=== PATIENT | male | born 1955 | race Caucasian/White ===

== ENCOUNTER → 2017-03-19 | Outpatient (CLI) | payer BC, OTHER ==
--- NOTE | 2017-03-19 18:58 | Diagnostic Imaging Report ---
PROCEDURE: US Thyroid. TECHNIQUE: Multiple real-time grayscale images were obtained of the thyroid in various projections. INDICATION: History of parathyroid ablation. Thyromegaly. FINDINGS: The right thyroid lobe is 2.6 x 1 x 0.8 cm and the left lobe is 2.7 x 0.6 x 0.8 cm. Overall the thyroid gland is small in size and demonstrates minimal heterogeneity with no focal mass. IMPRESSION: Small slightly heterogenous thyroid gland. Dictated by: Dictated on workstation # [id number]
== END ==
LOC: RAD 09:51
PROVIDERS: ATTEND Nurse Practitioner Family
DX: E01.0 Iodine-deficiency related diffuse (endemic) goiter (principal)
CPT/HCPCS: 76536

== ENCOUNTER 2017-04-15 09:46 | Day surgery (SDC) | payer OTHER ==
[~2017-04-15] VITALS: Ht 172.7 cm; Wt 95.3 kg
[~2017-04-15 09:46] MED LIST: AMLO5TAB2 PO; CARB-88 PO; COLC0.6T53 PO; LEVO200T PO; LEVO75TA PO; LOSA100T28 PO; PHEN64.8 PO; SULF1TAB35 PO
[2017-04-15 09:50] VITALS: BP 145/79
[2017-04-15] MEDS ORDERED: ceFAZolin 2 GM/50 ML NS 50 ML ONE (10:12)
[2017-04-15] MEDS ORDERED: LACTATED RINGERS 1,000 ML IV PRN (10:48)
[2017-04-15] MEDS ORDERED: ceFAZolin 2 GM/NS 50 ML IV ONE (11:00)
[2017-04-15] MEDS ORDERED: CARV25TA PO (11:21)
[2017-04-15] MEDS ORDERED: proPOfol 200 MG/20 ML (DIPRIVAN) VIAL IV ONE (12:00)
[2017-04-15] MEDS ORDERED: MIDAZOLAM 2 MG/2 ML (VERSED) VIAL ONE (12:01)
[2017-04-15] MEDS ORDERED: BUP/EPI 0.5% 1:200,000 (MARCAINE) 10ML VIAL IJ ONE (12:15)
--- NOTE | 2017-04-15 13:08 | Progress Note-Pre Operative ---
Pre-Operative Progress Note H&P Reviewed The H&P was reviewed, patient examined and no changes noted. Date Seen by Provider: Apr 08, 2017 Time Seen by Provider: 16:25 Date H&P Reviewed: Apr 15, 2017 Time H&P Reviewed: 13:07 Pre-Operative Diagnosis: 1. Sebaceous cyst-r flank. 2. Need for screening for colon cancer FOSTER LATHAM MD Apr 15, 2017 1:08 pm
[2017-04-15] MEDS ORDERED: SEVOFLURANE (ULTANE) 15 ML INHAL SOLN ONE (14:02)
--- NOTE | 2017-04-15 14:19 | Operative Report ---
Operative Report Date of Procedure/Surgery Apr 15, 2017 Surgeon (s) FOSTER LATHAM MD Care Attendant (s): Rohini Wilson ( Med Student) Post-Operative Diagnosis Infected sebaceous cyst right flank 1 mm polyp at the mid transverse colon Procedure Performed Excision of infected sebaceous cystright flank Colonoscopy to cecum Hot biopsy polypectomy Description of Procedure Anesthesia Type: General Estimated blood loss (mL): Minimal Specimen(s) collected/removed infected sebaceous cyst from the right flank. Polyp from the mid transverse colon Description of the Procedure Indication for the procedures: this gentleman was initially scheduled to undergo screening colonoscopy. The week before, he presented with a 3 cm infected sebaceous cyst over the right flank. He was offered concomitant excision of the time of colonoscopy. Informed consent was obtained after reviewing the operative details and complications of postoperative hematoma, wound infection, recurrence etc. Description of the procedures: 1. Excision of infected sebaceous cyst-right flank: He was placed supine on the operative table and general anesthesia induced using a laryngeal mask airway.2 g of Ancef were administered intravenously as prophylaxis against wound infection. Sequential compression devices were placed around his legs, to minimize the risk of venous thrombosis. Right flank was prepared and draped in the usual sterile manner. Pre-emptive analgesia was established using 0.5 percent Marcaine with epinephrine. An elliptical incision about 5 cm long was made and the cyst excised. Hemostasis was achieved using cautery and the area irrigated with saline. The incision was closed using interrupted 40 and 3-0 nylon sutures. A nonadherent dressing was then applied. 2. Colonoscopy/polypectomy: Digital rectal examination was unremarkable. The colonoscope was then introduced into the rectum and advanced all the way up to the cecum. The scope was then withdrawn slowly and the mucosa examined in a systematic fashion. Findings: 1 mm polyp in the mid transverse colon, possibly hyperplastic in nature, that was excised with hot biopsy forceps. He tolerated the procedures well, was extubated in the operating room and taken to the recovery room in a stable condition. Impression: Screening colonoscopy. One millimeter polyp excised from the transverse colon. Recommend surveillance colonoscopy in 5 years. Findings of the Procedure see op report Allergies and Home Medications Allergies Coded Allergies: No Known Drug Allergies (Unverified , 04/08/17) Home Medications Amlodipine Besylate 5 Mg Tablet, 5 MG PO DAILY, (Reported) Carbamazepine 200 Mg Tab.er.12h, 200 MG PO DAILY, (Reported) Carvedilol 25 Mg Tablet, 25 MG PO BID, (Reported) Colchicine 0.6 Mg Tablet, 0.6 MG PO DAILY, (Reported) Levothyroxine Sodium 200 Mcg Tablet, 200 MCG PO DAILY, (Reported) Levothyroxine Sodium 75 Mcg Tablet, 75 MCG PO DAILY, (Reported) Losartan Potassium 100 Mg Tablet, 100 MG PO DAILY, (Reported) Phenobarbital 64.8 Mg Tablet, 194.4 MG PO DAILY, (Reported) Sulfamethoxazole/Trimethoprim 1 Each Tablet, 1 EACH PO BID, (Reported) Copy Copies To 1: KATY ISU XAVIER M MD Apr 15, 2017 2:19 pm
[2017-04-15] MEDS ORDERED: HYDR-3812 PO (14:20)
--- NOTE | 2017-04-15 14:21 | Discharge Inst-Simple/Standard ---
Discharge Inst-Standard Discharge Medications New, Converted or Re-Newed RX: RX on Chart Patient Instructions/Follow Up Plan of Care/Instructions/FU: Dressing to be replaced with a Band-Aid every 48 hours. Follow-up with my nurse in 2 weeks for suture removal. Repeat colonoscopy in 5 years Activity as Tolerated: Yes Discharge Diet: No Restrictions FOSTER LATHAM MD Apr 15, 2017 2:21 pm
[2017-04-15] MEDS ORDERED: morphine INJ 10 MG/ML 1ML (SYR OR VIAL) IVP PRN (14:30)
[2017-04-15] MEDS ORDERED: ONDANSETRON 4 MG/2 ML (SDV) Z0FRAN IVP PRN (14:30)
[2017-04-15] MEDS ORDERED: MEPERIDINE (DEMEROL) INJ 50 MG/ML IVP PRN (14:30)
[2017-04-15 15:00] VITALS: BP 148/73
[2017-04-15 15:01] VITALS: BP 148/73
[2017-04-15 15:30] VITALS: BP 141/78
[2017-04-15 15:31] VITALS: BP 141/78
== END 2017-04-15 16:00 | disposition home or self-care (01) ==
LOC: ENDO 09:46
PROVIDERS: ATTEND Surgery
DX: Z12.11 Encounter for screening for malignant neoplasm of colon (principal); L72.3 Sebaceous cyst; K63.5 Polyp of colon; I10 Essential (primary) hypertension; G47.33 Obstructive sleep apnea (adult) (pediatric); E03.9 Hypothyroidism, unspecified; G40.909 Epilepsy, unspecified, not intractable, without status epilepticus; Z79.899 Other long term (current) drug therapy
CPT/HCPCS: 87081

== ENCOUNTER 2017-05-01 06:06 | Emergency (ER) | payer OTHER ==
[~2017-05-01] VITALS: Ht 172.7 cm; Wt 95.3 kg
[~2017-05-01 06:06] MED LIST changes: +CARV25TA PO; +HYDR-3812 PO
--- OUTSIDE RECORDS SUMMARY | 2017-05-01 06:13 | XMS REPORT | Clinical Summary ---
Author Author [facility] Organization [facility] Address Unknown Phone Unavailable Care Team Providers Care Financial Director Name Role Phone PCP Unavailable Source Comments Some departments are not documenting in the electronic medical record. If you do not see the information that you expected, contact Release of Information in the Health Information Management department at [phone] for further assistance in locating additional records.[facility] Allergies Active Allergy Reactions Severity Noted Date Comments Lidocaine PALPITATIONS 05/14/2014 Received at the dentist's office - stated that his "heart started beating faster" and he had "difficulty swallowing" which was relieved by suctioning, but no swelling or difficulty breathing. Current Medications Prescription Sig. Disp. Refills Start End Date Status Date tadalafil(+) (CIALIS) 5 Take 5 mg by mouth daily. Active mg tablet carBAMazepine XR Take 100 mg by mouth Active (TEGRETOL XR) 100 mg daily. tablet olmesartan-hydrochlorothi Take 1 Tab by mouth Active azide (BENICAR HCT) 40-25 daily. mg tablet carvedilol (COREG) 25 mg Take 25 mg by mouth twice Active tablet daily with meals. PHENobarbital 64.8 mg Take 3 tablets (194.4mg) Active tablet by mouth every day at bedtime atorvastatin (LIPITOR) 40 Take 40 mg by mouth Active mg tablet daily. colchicine (COLCRYS) 0.6 Take 0.6 mg by mouth Active mg tablet daily. amLODIPine (NORVASC) 5 mg Take 5 mg by mouth daily. Active tablet levothyroxine (SYNTHROID) Take 250mcg by mouth Active 50 mcg tablet daily. Take with 200mcg tablet for a total daily dose of 250mcg levothyroxine (SYNTHROID) Take 250mcg by mouth Active 200 mcg tablet daily. Take with 50mcg tablet for a total daily dose of 250mcg. Diphenhydramine-Acetamino Take 3 Tabs by mouth at Active phen (TYLENOL PM EXTRA bedtime daily. STRENGTH) 25-500 mg tab tablet ranitidine(+) (ZANTAC) Take 150 mg by mouth at Active 150 mg tablet bedtime daily. senna/docusate Take 1 Tab by mouth twice 60 Tab 0 06/11/19 Active (SENOKOT-S) 8.6/50 mg daily. 15 tablet morphine IR (MSIR) 15 mg Take 1 Tab by mouth every 40 Tab 0 06/11/19 Active tablet 6 hours as needed for 15 Pain Earliest Fill Date: 06/11/14 diazepam (VALIUM) 2 mg Take 1 Tab by mouth every 30 Tab 0 06/22/19 Active tablet 6 hours as needed for 15 Anxiety. lidocaine (LIDODERM) 5 % Apply topically to 30 Patch 1 06/22/19 Active topical patch abdomen at 8;00 am and 15 remove at 8:00 pm daily prn pain Active Problems Problem Noted Date Adrenal adenoma 06/09/2014 Adrenal mass (HCC) 05/11/2014 Immunizations Name Dates Previously Given Next Due Flu Vaccine Trivalent=>3 05/14/2014 Yo (Preservative Free) Family History Medical History Relation Name Comments Diabetes Father Hypertension Father Migraines Maternal Grandmother Cancer-Colon Maternal Uncle Cancer Mother Cancer-Breast Paternal Aunt Cancer Paternal Grandfather Cancer Paternal Grandmother Cancer-Prostate Paternal Uncle Hypertension Sister Migraines Sister Relation Name Status Comments Father Alive Maternal Grandmother Maternal Uncle Mother Paternal Aunt Alive Paternal Grandfather Paternal Grandmother Paternal Uncle Alive Sister Alive Social History Tobacco Use Types Packs/Day Years Used Date Never Smoker Alcohol Use Drinks/Week oz/Week Comments No Sex Assigned at Date Recorded Not on file Last Filed Vital Signs Vital Sign Reading Time Taken Blood Pressure 149/92 07/06/2014 12:59 PM [facility] Pulse 96 07/06/2014 12:59 PM [facility] Temperature 37.2 C (99 F) 07/06/2014 12:59 PM [facility] Respiratory Rate 18 07/06/2014 12:59 PM [facility] Oxygen Saturation 96% 07/06/2014 12:59 PM [facility] Inhaled Oxygen - - Concentration Weight 112.9 kg (248 lb 12.8 oz) 07/06/2014 12:59 PM [facility] Height 172.7 cm (5' 7.99") 07/06/2014 12:59 PM [facility] Body Mass Index 37.84 07/06/2014 12:59 PM [facility] Plan of Treatment Health Maintenance Due Date Last Done Comments HEPATITIS C SCREENING 1955 PHYSICAL (COMPREHENSIVE) 1962 EXAM PERTUSSIS VACCINE 1966 TETANUS VACCINE 02/24/1972 COLORECTAL CANCER 2005 SCREENING SHINGLES VACCINE 2015 INFLUENZA VACCINE 01/01/2017 05/14/2014, 05/14/2014 Results Not on filefrom Last 3 Months
[2017-05-01] MEDS ORDERED: METH4TAB10 (06:21)
[2017-05-01] MEDS ORDERED: AMOX500C2 (06:21)
--- NOTE | 2017-05-01 06:37 | ED Integumentary General ---
General Chief Complaint: Skin/Wound Problems Stated Complaint: RIPPED STITCHES RT SIDE Nursing Triage Note: OPENED INCISION Source: patient, old records Exam Limitations: no limitations History of Present Illness Time seen by provider: 06:23 Initial Comments Patient presents to ER by private conveyance with chief complaint that his surgical wound opened up this morning while he was in bed and had a lot of blood at the site. Patient had a sebaceous cyst removed [address] Latham, General Surgery. He had the stitches pulled [address] Latham clinic. Wound was doing well he is having no fevers, chills, nausea, vomiting, shortness of breath, chest pain. He does not smoke nor does he have diabetes. 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 2 days ago he picked up a prescription for antibiotics and steroids for an abscess of his tooth. Allergies and Home Medications Allergies Coded Allergies: No Known Drug Allergies (Unverified , 04/08/17) Home Medications Amlodipine Besylate 5 Mg Tablet, 5 MG PO DAILY, (Reported) Amoxicillin 500 Mg Capsule, (Reported) Carbamazepine 200 Mg Tab.er.12h, 200 MG PO DAILY, (Reported) Carvedilol 25 Mg Tablet, 25 MG PO BID, (Reported) Colchicine 0.6 Mg Tablet, 0.6 MG PO DAILY, (Reported) Hydrocodone/Acetaminophen 1 Each Tablet, 1-2 TAB PO 4-6HR PRN for PAIN, #30 Ref 0 Prescribed by: FOSTER LATHAM on 04/15/17 1420 Levothyroxine Sodium 200 Mcg Tablet, 200 MCG PO DAILY, (Reported) Levothyroxine Sodium 75 Mcg Tablet, 75 MCG PO DAILY, (Reported) Losartan Potassium 100 Mg Tablet, 100 MG PO DAILY, (Reported) Methylprednisolone 4 Mg Tab.ds.pk, (Reported) Phenobarbital 64.8 Mg Tablet, 194.4 MG PO DAILY, (Reported) Sulfamethoxazole/Trimethoprim 1 Each Tablet, 1 EACH PO BID, (Reported) Constitutional: No chills, No diaphoresis, No fever Respiratory: No cough, No short of breath Cardiovascular: No chest pain, No palpitations Gastrointestinal: No abdominal pain, No nausea Genitourinary: No discharge, No dysuria Musculoskeletal: No back pain, No joint pain Skin: see HPI Past Swvcpya-Whwuhc-Aokgdy Hx Patient Social History Alcohol Use: Denies Use Recreational Drug Use: No Smoking Status: Never a Smoker 2nd Hand Smoke Exposure: No Recent Foreign Travel: No Contact w/Someone Who Travel: No Recent Infectious Disease Expo: No Recent Hopitalizations: No Immunizations Up To Date Tetanus Booster (TDap): Unknown PED Vaccines UTD: No Date of Influenza Vaccine: Feb 13, 2016 Seasonal Allergies Seasonal Allergies: Yes Surgeries History of Surgeries: Yes (ADRENAL GLAND REMOVED, CYSTS REMOVED NECK) Surgeries: Tonsillectomy Respiratory History of Respiratory Disorde: Yes Respiratory Disorders: Sleep Apnea Currently Using CPAP: No (UNABLE TO USE) Cardiovascular History of Cardiac Disorders: Yes Cardiac Disorders: Hypertension Neurological History of Neurological Disord: Yes (HASNT HAD SEIZURE IN 20YRS) Neurological Disorders: Seizure Disorder Reproductive System Hx Reproductive Disorders: No Sexually Transmitted Disease: No HIV/AIDS: No Genitourinary History of Genitourinary Disor: No Gastrointestinal History of Gastrointestinal Di: No Musculoskeletal History of Musculoskeletal Dis: No Endocrine History of Endocrine Disorders: Yes Endocrine Disorders: Hypothyroidsim HEENT History of HEENT Disorders: No Loss of Vision: Bilateral Hearing Impairment: Denies Cancer History of Cancer: No Psychosocial History of Psychiatric Problem: No Integumentary History of Skin or Integumenta: No Blood Transfusions History of Blood Disorders: No Adverse Reaction to a Blood Tr: No (N/A) Physical Exam Vital Signs Vital Sign - Last 12Hours 05/01/17 06:10 Temp 98.1 Pulse 63 Resp 18 B/P (MAP) 143/87 Pulse Ox 94 O2 Delivery Room Air Capillary Refill : Less Than 3 Seconds General Appearance: WD/WN, no apparent distress HEENT: PERRL/EOMI, pharynx normal Cardiovascular: normal peripheral pulses, regular rate, rhythm Respiratory: lungs clear, normal breath sounds Gastrointestinal: non tender, soft Neurologic/Psychiatric: alert, oriented x 3 Skin: normal color, warm/dry, other (2-1/2 cm long reopening of a previously approximated surgical incision in the right chest midaxillary line at about the 10th rib. Small cavity hemostatic approximately the size of a quarter.) Progress/Results/Core Measures Results/Orders Vital Signs/I&O Vital Sign - Last 12Hours 05/01/17 06:10 Temp 98.1 Pulse 63 Resp 18 B/P (MAP) 143/87 Pulse Ox 94 O2 Delivery Room Air Blood Pressure Mean: 105 Consults Consults : Consulting Physician: BETTY ARNOLD MD Consults Notes He recommends just packing the wound place and a dressing over and have him follow-up in about one week with Dr. Latham. No antibiotics necessary at this time. Clean with soap and water. Change daily and as needed for soiling. Departure Impression Impression: Primary Impression: Wound dehiscence Disposition: HOME, SELF-CARE Condition: Stable Departure-Patient Inst. Decision time for Depature: 06:38 Referrals: KATY SIU DO (PCP) Primary Care Physician KATHRYN SIU DNP (Family) Primary Care Physician Patient Instructions: Wound Care (DC) Add. Discharge Instructions: Packed the wound with the iodoform daily and as needed for soiling of the dressing. Clean by allowing soap water to just run over it while in the shower. Apply a clean dry gauze dressing over top of the wound. Make plans to follow-up with Dr. Latham next week. If you begin to have extreme redness, increasing pain, nausea, fevers you should get in with your doctor or return to the ER. Discontinue the steroids but you may continue the antibiotics for your tooth. All discharge instructions reviewed with patient and/or family. Voiced understanding. Copy Copies To 1: FOSTER LATHAM MD Copies To 2: KATY SIU TITUS J May 01, 2017 06:37
[2017-05-01 06:44] VITALS: BP 143/87
== END 2017-05-01 06:49 | disposition home or self-care (01) ==
LOC: EDUNIT# 06:06 → ER 06:09
DX: T81.31XA Disruption of external operation (surgical) wound, not elsewhere classified, initial encounter (principal); G47.30 Sleep apnea, unspecified; I10 Essential (primary) hypertension; G40.909 Epilepsy, unspecified, not intractable, without status epilepticus; E03.9 Hypothyroidism, unspecified; Z90.89 Acquired absence of other organs

== ENCOUNTER → 2017-05-16 | Outpatient (CLI) | payer OTHER ==
[~2017-05-16] MED LIST changes: +AMOX500C2; +METH4TAB10
== END ==
LOC: WOUNDCARE 10:38
PROVIDERS: ATTEND Nurse Practitioner
DX: L97.212 Non-pressure chronic ulcer of right calf with fat layer exposed (principal); I87.331 Chronic venous hypertension (idiopathic) with ulcer and inflammation of right lower extremity; E11.622 Type 2 diabetes mellitus with other skin ulcer; E66.01 Morbid (severe) obesity due to excess calories; I70.232 Atherosclerosis of native arteries of right leg with ulceration of calf
CPT/HCPCS: 11042; 87070; 87075; 87205

== ENCOUNTER → 2017-05-24 | Outpatient (CLI) | payer OTHER | LOC: WOUNDCARE 08:13 | PROVIDERS: ATTEND Surgery | DX: T81.31XA Disruption of external operation (surgical) wound, not elsewhere classified, initial encounter (principal); L98.492 Non-pressure chronic ulcer of skin of other sites with fat layer exposed | CPT/HCPCS: 11042 ==

== ENCOUNTER → 2017-06-07 | Outpatient (CLI) | payer OTHER ==
[~2017-06-07] MED LIST changes: +ACHD5005 PO; -HYDR-3812 PO
== END ==
LOC: WOUNDCARE 08:08
PROVIDERS: ATTEND Surgery
DX: T81.31XA Disruption of external operation (surgical) wound, not elsewhere classified, initial encounter (principal); L98.492 Non-pressure chronic ulcer of skin of other sites with fat layer exposed
CPT/HCPCS: 99212

== ENCOUNTER 2020-10-31 20:42 | Inpatient (IN) | payer OTHER, MEDICARE ==
[~2020-10-31] VITALS: Ht 173 cm; Wt 95.0 kg
[~2020-10-31 20:42] MED LIST changes: +AMLO-250 PO; -AMLO5TAB2 PO; -LOSA100T28 PO; +LOSA100T57 PO
[2020-10-31] MEDS ORDERED: NS IV 1000 ML 1,000 ML IV SCH (21:00)
[2020-10-31 21:07] LABS: BASOPHILS % (AUTO) 0 % (0-10); EOSINOPHILS % (AUTO) 0 % (0-10); HEMATOCRIT 35 % (40-54); HEMOGLOBIN 12.1 g/dL (13.3-17.7); LYMPHOCYTES # (AUTO) 0.5 10^3/uL (1.0-4.0); LYMPHOCYTES % (AUTO) 8 % (12-44); MEAN CORPUSCULAR HEMOGLOBIN 31 pg (25-34); MEAN CORPUSCULAR HGB CONC 34 g/dL (32-36); MEAN CORPUSCULAR VOLUME 89 fL (80-99); MEAN PLATELET VOLUME 10.5 fL (9.0-12.2); MONOCYTES # (AUTO) 0.2 10^3/uL (0.0-1.0); MONOCYTES % (AUTO) 3 % (0-12); NEUTROPHILS % (AUTO) 89 % (42-75); PLATELET COUNT 222 10^3/uL (130-400); WHITE BLOOD COUNT 6.8 10^3/uL (4.3-11.0)
--- NOTE | 2020-10-31 21:11 | ED General ---
General Chief Complaint: Fever-Adult/Adol Stated Complaint: FEVER EVERY 2 HOURS Nursing Triage Note: MALAISE X1 WEEK, FEVER/DIARRHEA SINCE SATURDAY. Nursing Sepsis Screen: No Definite Risk Source of Information: Patient Exam Limitations: No Limitations History of Present Illness Date Seen by Provider: October 31, 2020 Time Seen by Provider: 21:09 Initial Comments To ER with general malaise for 1 week. He started with a fever and diarrhea 2 days ago. Fever up to 105 degrees, spikes every couple of hours. No nausea no vomiting no dysuria. No known tick bites. No rash. No sore throat no headache. No abdominal pain. No cough.Had Scooter and Scooter covid vaccine in September. Timing/Duration: 1-2 Days Severity: Moderate Associated Systoms: Fever/Chills Allergies and Home Medications Allergies Coded Allergies: No Known Drug Allergies (Unverified , 04/08/17) Home Medications Amlodipine Besylate 5 Mg Tablet, 5 MG PO DAILY, (Reported) Amoxicillin/Potassium Clav 1 Each Tab.er.12h, 2 EACH PO BID Prescribed by: BECKY ETIENNE on 10/31/202118 Azithromycin 250 Mg Tablet, 250 MG PO DAILY Prescribed by: BECKY ETIENNE on 10/31/202118 Carbamazepine 200 Mg Tab.er.12h, 200 MG PO DAILY, (Reported) Carvedilol 25 Mg Tablet, 25 MG PO BID, (Reported) Colchicine 0.6 Mg Tablet, 0.6 MG PO DAILY, (Reported) Hydrocodone Bit/Acetaminophen 1 Each Tablet, 1-2 TAB PO 4-6HR PRN for PAIN Prescribed by: FOSTER LATHAM on 04/15/17 1420 Levothyroxine Sodium 200 Mcg Tablet, 200 MCG PO DAILY, (Reported) Levothyroxine Sodium 75 Mcg Tablet, 75 MCG PO DAILY, (Reported) Losartan Potassium 100 Mg Tablet, 100 MG PO DAILY, (Reported) Phenobarbital 64.8 Mg Tablet, 194.4 MG PO DAILY, (Reported) Sulfamethoxazole/Trimethoprim 1 Each Tablet, 1 EACH PO BID, (Reported) Patient Home Medication List Home Medication List Reviewed: Yes Review of Systems Review of Systems Constitutional: see HPI, chills, fever EENTM: see HPI Respiratory: no symptoms reported Cardiovascular: no symptoms reported Genitourinary: no symptoms reported Musculoskeletal: no symptoms reported Skin: no symptoms reported Psychiatric/Neurological: No Symptoms Reported Hematologic/Lymphatic: No Symptoms Reported Past Kbfhtid-Caqxfg-Klzmgf Hx Patient Social History Alcohol Use: Denies Use Smoking Status: Never a Smoker 2nd Hand Smoke Exposure: No Recent Infectious Disease Expo: No Recent Hopitalizations: No Immunizations Up To Date Tetanus Booster (TDap): Unknown PED Vaccines UTD: No Date of Influenza Vaccine: Feb 13, 2016 Seasonal Allergies Seasonal Allergies: Yes Past Medical History Surgeries: Yes (ADRENAL GLAND REMOVED, CYSTS REMOVED NECK) Tonsillectomy Respiratory: Yes Sleep Apnea Currently Using CPAP: No (UNABLE TO USE) Cardiac: Yes Hypertension Neurological: Yes Seizure Disorder Reproductive Disorders: No Sexually Transmitted Disease: No HIV/AIDS: No Genitourinary: No Gastrointestinal: No Musculoskeletal: No Endocrine: Yes Hypothyroidsim HEENT: No Loss of Vision: Bilateral Hearing Impairment: Denies Cancer: No Psychosocial: No Integumentary: No Blood Disorders: No Adverse Reaction/Blood Tranf: No (N/A) Physical Exam Vital Signs Vital Signs - First Documented 10/31/20 20:47 Temp 38.4 Pulse 88 Resp 12 B/P (MAP) 138/65 (89) Pulse Ox 93 O2 Delivery Room Air Capillary Refill : Less Than 3 Seconds Height, Weight, BMI Height: 5'8.00" Weight: 210lbs. 0.0oz. 95.173626ov; 31.00 BMI Method:Stated General Appearance: No Apparent Distress, WD/WN, Other (Diaphoretic as he states his fever just broke) Eyes: Bilateral Eye Normal Inspection, Bilateral Eye PERRL, Bilateral Eye EOMI HEENT: PERRL/EOMI, TMs Normal Neck: Full Range of Motion, Normal Inspection; No Lymphadenopathy (L), No Lymphadenopathy (R) Respiratory: No Accessory Muscle Use, No Respiratory Distress, Crackles (right lung base crackles) Cardiovascular: Regular Rate, Rhythm, Normal Peripheral Pulses Gastrointestinal: Normal Bowel Sounds, Non Tender, Soft Extremity: Normal Capillary Refill, Normal Inspection Neurologic/Psychiatric: Alert, Oriented x3 Skin: Normal Color, Warm/Dry Focused Exam Lactate Level 10/31/20 21:00: Lactic Acid Level 2.40*H Lactic Acid Level Laboratory Tests Test 10/31/20 21:00 Lactic Acid Level 2.40 MMOL/L (0.50-2.00) *H Progress/Results/Core Measures Suspected Sepsis Recent Fever Within 48 Hours: No Infection Criteria Present: None New/Unexplained Altered Menta: No Sepsis Screen: No Definite Risk SIRS Temperature: Pulse: 88 Respiratory Rate: 12 Laboratory Tests 10/31/20 21:00: White Blood Count 6.8 Blood Pressure 138 /65 Mean: 89 10/31/20 21:00: Lactic Acid Level 2.40*H Laboratory Tests 10/31/20 21:00: Creatinine 1.17, Platelet Count 222, Total Bilirubin 0.3 Results/Orders Lab Results Laboratory Tests Test 10/31/20 21:00 Range/Units White Blood Count 6.8 4.3-11.0 10^3/uL Red Blood Count 3.97 L 4.30-5.52 10^6/uL Hemoglobin 12.1 L 13.3-17.7 g/dL Hematocrit 35 L 40-54 % Mean Corpuscular Volume 89 80-99 fL Mean Corpuscular Hemoglobin 31 25-34 pg Mean Corpuscular Hemoglobin Concent 34 32-36 g/dL Red Cell Distribution Width 13.2 10.0-14.5 % Platelet Count 222 130-400 10^3/uL Mean Platelet Volume 10.5 9.0-12.2 fL Immature Granulocyte % (Auto) 1 % Neutrophils (%) (Auto) 89 H 42-75 % Lymphocytes (%) (Auto) 8 L 12-44 % Monocytes (%) (Auto) 3 0-12 % Eosinophils (%) (Auto) 0 0-10 % Basophils (%) (Auto) 0 0-10 % Neutrophils # (Auto) 6.0 1.8-7.8 10^3/uL Lymphocytes # (Auto) 0.5 L 1.0-4.0 10^3/uL Monocytes # (Auto) 0.2 0.0-1.0 10^3/uL Eosinophils # (Auto) 0.0 0.0-0.3 10^3/uL Basophils # (Auto) 0.0 0.0-0.1 10^3/uL Immature Granulocyte # (Auto) 0.0 0.0-0.1 10^3/uL Neutrophils % (Manual) 91 % Lymphocytes % (Manual) 5 % Monocytes % (Manual) 3 % Band Neutrophils 1 % Blood Morphology Comment NORMAL Sodium Level 135 135-145 MMOL/L Potassium Level 3.2 L 3.6-5.0 MMOL/L Chloride Level 102 98-107 MMOL/L Carbon Dioxide Level 19 L 21-32 MMOL/L Anion Gap 14 5-14 MMOL/L Blood Urea Nitrogen 17 7-18 MG/DL Creatinine 1.17 0.60-1.30 MG/DL Estimat Glomerular Filtration Rate > 60 BUN/Creatinine Ratio 15 Glucose Level 173 H 70-105 MG/DL Lactic Acid Level 2.40 *H 0.50-2.00 MMOL/L Calcium Level 8.3 L 8.5-10.1 MG/DL Corrected Calcium 9.0 8.5-10.1 MG/DL Total Bilirubin 0.3 0.1-1.0 MG/DL Aspartate Amino Transf (AST/SGOT) 27 5-34 U/L Alanine Aminotransferase (ALT/SGPT) 24 0-55 U/L Alkaline Phosphatase 50 40-136 U/L Total Protein 6.2 L 6.4-8.2 GM/DL Albumin 3.1 L 3.2-4.5 GM/DL Procalcitonin 3.10 H <0.10 NG/ML My Orders Orders - BECKY ETIENNE APRN Blood Culture (10/31/20 20:56) Lactic Acid Analyzer (10/31/20 20:56) Chest 1 View, Ap/Pa Only (10/31/20 20:56) Ed Iv/Invasive Line Start (10/31/20 20:56) Cbc With Automated Diff (10/31/20 20:56) Procalcitonin (Pct) (10/31/20 20:56) Comprehensive Metabolic Panel (10/31/20 20:56) Ns Iv 1000 Ml (Sodium Chloride 0.9%) (10/31/20 21:00) Ua Culture If Indicated (10/31/20 20:59) Manual Differential (10/31/20 21:00) Ct Angio Chest W (10/31/20 21:24) Ceftriaxone For Iv Use (Rocephin For I (10/31/20 21:45) Azithromycin Tablet (Zithromax Tablet) (10/31/20 21:45) Influenza A And B By Pcr (10/31/20 21:57) Coronavirus Sars-Cov-2 So 2018 (10/31/20 21:57) Vital Signs/I&O 10/31/20 20:47 Temp 38.4 Pulse 88 Resp 12 B/P (MAP) 138/65 (89) Pulse Ox 93 O2 Delivery Room Air Capillary Refill : Less Than 3 Seconds Blood Pressure Mean: 89 Diagnostic Imaging Diagonstic Imaging: Xray Plain Films/CT/US/NM/MRI: chest Comments NAME: LAM LUDWIG [facility] REC#: [id number] PT STATUS: REG ER : 1955 PHYSICIAN: BECKY ETIENNE APRN ADMIT DATE: 10/31/20/ER Draft Date of Exam:10/31/20 CHEST 1 VIEW, AP/PA ONLY INDICATION: Fever. No prior examinations are available for comparison. FINDINGS: There is a right basilar infiltrate compatible with pneumonia. The heart size is normal. Left lung is clear. There is no pneumothorax. Mediastinum is unremarkable. There is no pleural effusion. IMPRESSION: Rather extensive right basilar pneumonia. Dictated on workstation # [id number] Dict: 10/31/202115 Trans: 10/31/202117 [facility] [id number] Interpreted by: KRISTA BECERRA MD Electronically signed by: Departure Communication (Admissions) 2121-patient saturation 90 to 92% on room air. He is not in respiratory distress. No accessory muscle use. Heart rate 84. Blood pressure 127/54. 2203-neck from CT. Oxygen saturation dropped to 88% with good waveform with minimal exertion such as getting out of the wheelchair and into bed. Impression Primary Impression: RLL pneumonia Additional Impression: Hypoxia Disposition: ADMITTED INPATIENT Condition: Stable Admissions Decision to Admit Reason: Admit from ER (General) Decision to Admit/Date: October 31, 2020 Time/Decision to Admit Time: 22:03 Departure-Patient Inst. Decision time for Depature: 21:16 Referrals: KATY ISU DO (PCP) Primary Care Physician KATHRYN SIU DNP (Family) Primary Care Physician Patient Instructions: Pneumonia, Adult ED Scripts Azithromycin (Azithromycin) 250 Mg Tablet 250 MG PO DAILY, #4 TAB 0 Refills Prov: BECKY ETIENNE APRN 10/31/20 Amoxicillin/Potassium Clav (Augmentin Xr 1,000-62.5 Tab) 1 Each Tab.er.12h 2 EACH PO BID, #28 TAB Prov: BECKY ETIENNE APRN 10/31/20 Copy Copies To 1: KATY SIU PETER J APRN October 31, 2020 21:11
[2020-10-31] MEDS ORDERED: AZIT250T12 PO (21:19)
[2020-10-31] MEDS ORDERED: AMOX-356 PO (21:19)
--- NOTE | 2020-10-31 21:19 | Diagnostic Imaging Report ---
INDICATION: Fever. No prior examinations are available for comparison. FINDINGS: There is a right basilar infiltrate compatible with pneumonia. The heart size is normal. Left lung is clear. There is no pneumothorax. Mediastinum is unremarkable. There is no pleural effusion. IMPRESSION: Rather extensive right basilar pneumonia. Dictated by: Dictated on workstation # [id number]
[2020-10-31 21:22] LABS: ALBUMIN 3.1 GM/DL (3.2-4.5); CHLORIDE 102 MMOL/L (98-107); POTASSIUM 3.2 MMOL/L (3.6-5.0); SODIUM 135 MMOL/L (135-145)
[2020-10-31 21:23] LABS: CALCIUM 8.3 MG/DL (8.5-10.1)
[2020-10-31 21:25] LABS: GLUCOSE 173 MG/DL (70-105); TOTAL PROTEIN 6.2 GM/DL (6.4-8.2)
[2020-10-31 21:26] LABS: BILIRUBIN,TOTAL 0.3 MG/DL (0.1-1.0); CARBON DIOXIDE 19 MMOL/L (21-32)
[2020-10-31 21:28] LABS: ALKALINE PHOSPHATASE 50 U/L (40-136); CREATININE SERUM 1.17 MG/DL (0.60-1.30); GFR ESTIMATED > 60
[2020-10-31 21:29] LABS: BUN/CREATININE RATIO 15
[2020-10-31] MEDS ORDERED: CATHETER FLUSH 10 ML SYR IV PRN (21:30)
[2020-10-31] MEDS ORDERED: IOHEXOL 350 MG/ML 100 ML (OMNIPAQUE 350) VIAL IV ONE (21:30)
[2020-10-31] MEDS ORDERED: HOLD METFORMIN - RECEIVED CONTRAST 20 ML VIAL IV SCH (21:30)
[2020-10-31] MEDS ORDERED: NS 100 ML (IVPB) BAG IV ONE (21:30)
[2020-10-31 21:31] LABS: ALANINE AMINOTRANSFERASE 24 U/L (0-55)
[2020-10-31 21:36] LABS: BAND NEUTROPHILS 1 %; LYMPHOCYTES % (MANUAL) 5 %; MONOCYTES % (MANUAL) 3 %; NEUTROPHILS % (MANUAL) 91 %; RBC MORPH NORMAL
[2020-10-31] MEDS ORDERED: AZITHROMYCIN 250 MG TAB (ZITHROMAX) PO SCH (21:45)
[2020-10-31] MEDS ORDERED: cefTRIAXone FOR IV USE 2,000 MG in WATER (STERILE) FOR INJECTION 20 ML IV ONE (21:45)
[2020-10-31 23:05] LABS: BILIRUBIN,URINE NEGATIVE (NEGATIVE); CLARITY,URINE CLEAR; COLOR,URINE YELLOW; GLUCOSE, URINE (UA) NEGATIVE (NEGATIVE); KETONES,URINE NEGATIVE (NEGATIVE); LEUKOCYTE ESTERASE ,URINE NEGATIVE (NEGATIVE); NITRITE,URINE NEGATIVE (NEGATIVE); PH,URINE 6.5 (5-9); PROTEIN,URINE TRACE (NEGATIVE)
[2020-10-31 23:23] LABS: BACTERIA,URINE NEGATIVE /HPF
[2020-10-31] MEDS ORDERED: ACETAMINOPHEN 325 MG TABLET ONE (23:33)
[2020-10-31] MEDS ORDERED: LACTATED RINGERS 1,000 ML IV ONE (23:33)
[2020-10-31] MEDS: LACTATED RINGERS 1,000 ML IV SCH (23:50)
[2020-10-31] MEDS: ACETAMINOPHEN 325 MG TABLET PO PRN (23:50)
[2020-11-01] VITALS (7 sets, daily range): BP systolic 118–176; BP diastolic 55–76
[2020-11-01] MEDS ORDERED: ONDANSETRON 4 MG/2 ML (SDV) Z0FRAN IV PRN (00:45)
[2020-11-01] MEDS ORDERED: RT-ALBUTEROL/IPRATROPIUM 3 ML (DUONEB) VIAL INH PRN (00:45)
[2020-11-01] MEDS: IBUPROFEN 600 MG (MOTRIN) TAB PO PRN ×2 (03:31→16:45)
[2020-11-01 04:54] LABS: BASOPHILS % (AUTO) 0 % (0-10); EOSINOPHILS # (AUTO) 0.1 10^3/uL (0.0-0.3); EOSINOPHILS % (AUTO) 2 % (0-10); HEMATOCRIT 36 % (40-54); HEMOGLOBIN 13.2 g/dL (13.3-17.7); LYMPHOCYTES # (AUTO) 1.3 10^3/uL (1.0-4.0); LYMPHOCYTES % (AUTO) 19 % (12-44); MEAN CORPUSCULAR HEMOGLOBIN 33 pg (25-34); MEAN CORPUSCULAR HGB CONC 37 g/dL (32-36); MEAN CORPUSCULAR VOLUME 89 fL (80-99); MEAN PLATELET VOLUME 10.6 fL (9.0-12.2); MONOCYTES # (AUTO) 0.3 10^3/uL (0.0-1.0); MONOCYTES % (AUTO) 4 % (0-12); NEUTROPHILS # (AUTO) 5.1 10^3/uL (1.8-7.8); NEUTROPHILS % (AUTO) 74 % (42-75); PLATELET COUNT 195 10^3/uL (130-400); WHITE BLOOD COUNT 6.8 10^3/uL (4.3-11.0)
[2020-11-01 05:00] LABS: CHLORIDE 106 MMOL/L (98-107); POTASSIUM 3.9 MMOL/L (3.6-5.0); SODIUM 138 MMOL/L (135-145)
[2020-11-01 05:01] LABS: CALCIUM 8.6 MG/DL (8.5-10.1)
[2020-11-01 05:02] LABS: GLUCOSE 103 MG/DL (70-105)
[2020-11-01 05:03] LABS: CARBON DIOXIDE 20 MMOL/L (21-32)
[2020-11-01 05:06] LABS: CREATININE SERUM 0.92 MG/DL (0.60-1.30); GFR ESTIMATED > 60
[2020-11-01 05:07] LABS: BUN/CREATININE RATIO 17
--- NOTE | 2020-11-01 07:09 | Diagnostic Imaging Report ---
PROCEDURE: CT angiography Chest TECHNIQUE: After intravenous administration of contrast, thin section axial CT angiography of the chest was performed. 3D MIP reconstructions were made. All CT scans use one or more of the following dose optimizing techniques: automated exposure control, MA and/or KvP adjustment based on a patient size and exam type, or iterative reconstruction. INDICATION: Hypoxia COMPARISON: None available. FINDINGS: Vasculature: No pulmonary emboli. No CT evidence of pulmonary hypertension or right ventricular strain. Thoracic aorta is normal in caliber. No aortic dissection or pseudoaneurysm. Heart and mediastinum: No supraclavicular, axillary, or intra-thoracic lymphadenopathy. The heart is normal in size without pericardial effusion. Pleura: No pleural effusion or pneumothorax. Lungs and airway: No endoluminal lesion in the trachea or central bronchi. Multifocal ground glass opacities and consolidations involve all 5 lobes but are most confluent in the right middle and lower lobes. Upper abdomen: Allowing for the phase of contrast, no acute abnormality in the upper abdomen is seen. Musculoskeletal: No concerning osseous lesion. IMPRESSION: 1. No pulmonary emboli or acute aortic syndrome. 2. Multifocal pneumonia is greatest in the right lung base. Dictated by: Dictated on workstation # [id number]
[2020-11-01] MEDS: RT-ALBUTEROL/IPRATROPIUM 3 ML (DUONEB) VIAL INH SCH ×2 (07:21→22:05)
[2020-11-01] MEDS: ENOXAPARIN 40 MG/0.4 ML (LOVENOX) SYR SC SCH (08:22)
[2020-11-01] MEDS: ACETAMINOPHEN 325 MG TABLET PO PRN ×3 (08:23→18:13)
[2020-11-01] MEDS: LACTATED RINGERS 1,000 ML IV SCH ×2 (09:57→20:59)
--- NOTE | 2020-11-01 10:56 | History & Physical-Hospitalist ---
History of Present Illness HPI/Chief Complaint Pt is a 65yoCM with a PMH of hypothyroidism, seizure disorder, HTN who presented to the ER due to fever. He states he has not been feeling well for about a week. He travels for work and was staking theraflu because he thought he had a the flu. He continued to worsened and when his temperature reached a reported 105 last night his brought him in for evaluation. He complains of a cough as well but denies sick contacts, nausea, vomiting. He does have diarrhea that has been going on for a few days. 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 Patients Allergies have been reviewed. Allergies Allergies Coded Allergies No Known Drug Allergies (Mkascucrmt31/6/17) Past Zgkyfeh-Nkvhhf-Izwsdc Hx Patient Social History Tobacco Use?: No Smoking Status: Never a Smoker Smokeless Tobacco Frequency: Never a User Use of E-Cig and/or Vaping Mars: Never a User Alcohol Use?: No Pt feels they are or have been: No Immunizations Up To Date Date of Influenza Vaccine: Feb 13, 2016 PED Vaccines UTD: No Seasonal Allergies Seasonal Allergies: Yes Current Status Communicates: Verbally Primary Language: Gabonese Preferred Spoken Language: Gabonese Is interpretation needed?: No Past Medical History Surgeries: Tonsillectomy Sleep Apnea Currently Using CPAP: No (UNABLE TO USE) Hypertension Seizure Disorder Sexually Transmitted Disease: No HIV/AIDS: No Hypothyroidsim Loss of Vision: Bilateral Hearing Impairment: Denies Blood Disorders: No Adverse Reaction/Blood Tranf: No (N/A) Review of Systems Constitutional: chills, diaphoresis, fever, malaise Respiratory: cough, short of breath Cardiovascular: No chest pain, No Hx of Intervention Gastrointestinal: No abdominal pain, No constipation; diarrhea; No nausea, No vomiting Genitourinary: no symptoms reported Musculoskeletal: no symptoms reported Skin: no symptoms reported Psychiatric/Neurological: No Symptoms Reported Physical Exam Physical Exam Vital Signs Vital Signs - First Documented 10/31/20 10/31/20 20:47 23:55 Temp 38.4 Pulse 88 Resp 12 B/P (MAP) 138/65 (89) Pulse Ox 93 O2 Delivery Room Air O2 Flow Rate 2.00 Capillary Refill : Less Than 3 Seconds Height, Weight, BMI Height: 5'8.00" Weight: 210lbs. 0.0oz. 95.881908ep; 31.74 BMI Method:Stated General Appearance: No Apparent Distress, WD/WN, Obese HEENT: PERRL/EOMI, Moist Mucous Membranes Neck: Normal Inspection, Supple Respiratory: No Accessory Muscle Use, No Respiratory Distress, Crackles (right base) Cardiovascular: Regular Rate, Rhythm, No Murmur Gastrointestinal: Normal Bowel Sounds, Non Tender, Soft Neurologic/Psychiatric: Alert, Oriented x3 Results Results/Procedures Labs Laboratory Tests 10/31/20 21:00 11/01/20 04:43 Patient resulted labs reviewed. Imaging: Reviewed Imaging Report Imaging [facility] [place] [place] NAME: LAM LUDWIG [facility] REC#: [id number] PT STATUS: ADM IN : 1955 PHYSICIAN: BECKY ETIENNE APRN ADMIT DATE: 10/31/20 Signed Date of Exam:10/31/20 CT ANGIO CHEST W PROCEDURE: CT angiography Chest TECHNIQUE: After intravenous administration of contrast, thin section axial CT angiography of the chest was performed. 3D MIP reconstructions were made. All CT scans use one or more of the following dose optimizing techniques: automated exposure control, MA and/or KvP adjustment based on a patient size and exam type, or iterative reconstruction. INDICATION: Hypoxia COMPARISON: None available. FINDINGS: Vasculature: No pulmonary emboli. No CT evidence of pulmonary hypertension or right ventricular strain. Thoracic aorta is normal in caliber. No aortic dissection or pseudoaneurysm. Heart and mediastinum: No supraclavicular, axillary, or intra-thoracic lymphadenopathy. The heart is normal in size without pericardial effusion. Pleura: No pleural effusion or pneumothorax. Lungs and airway: No endoluminal lesion in the trachea or central bronchi. Multifocal ground glass opacities and consolidations involve all 5 lobes but are most confluent in the right middle and lower lobes. Upper abdomen: Allowing for the phase of contrast, no acute abnormality in the upper abdomen is seen. Musculoskeletal: No concerning osseous lesion. IMPRESSION: 1. No pulmonary emboli or acute aortic syndrome. 2. Multifocal pneumonia is greatest in the right lung base. Dictated by: Dictated on workstation # [id number] Dict: 11/01/20704 Trans: 11/01/20706 [facility] [id number] Interpreted by: JANET ARCE MD Electronically signed by: JANET ARCE MD 11/01/20706 Assessment/Plan Admission Diagnosis Sepsis Admission Status: Inpatient Order (span 2 midnights) Reason for Inpatient Admission: see below Assessment and Plan Sepsis CAP Continue IV abx Deferveseced this am Await cultures Wean oxygen as able to keep sats >90 Diarrhea check c diff Start on probiotic Imodium prn Seizure disorder Continue home meds when med rec available DVT ppx: CHAYA Ballard MD Nov 01, 2020 10:56
[2020-11-01] MEDS ORDERED: LOPERAMIDE 2 MG (IMODIUM) TABLET PO PRN (11:15)
[2020-11-01] MEDS: LACTOBACILLUS ACIDOPHILUS (PROBIOTIC) CAPSULE PO SCH ×2 (12:21→18:13)
[2020-11-01] MEDS ORDERED: LEVO300T5 PO (13:26)
[2020-11-01] MEDS ORDERED: IBUP1TAB14 PO (13:26)
[2020-11-01] MEDS ORDERED: COLC0.6C3 PO (13:26)
[2020-11-01] MEDS ORDERED: PHENobarbital 64.8 MG (1 GRAIN) TAb PO SCH (21:00)
[2020-11-01] MEDS ORDERED: AZITHROMYCIN INJECTION 500 MG in NS (IVPB) 250 ML IV SCH (21:00)
[2020-11-01] MEDS ORDERED: cefTRIAXone FOR IV USE 1,000 MG in WATER (STERILE) FOR INJECTION 10 ML IV SCH (21:00)
[2020-11-01] MEDS ORDERED: LEVOTHYROXINE 100 MCG (LEVOTHROID) TAB PO SCH (21:00)
[2020-11-01] MEDS ORDERED: AZITHROMYCIN 250 MG TAB (ZITHROMAX) PO SCH (21:00)
[2020-11-01] MEDS ORDERED: NON-FORMULARY MEDICATION 1 EA EA (Levothyroxine Sodium 300 MCG) PO SCH (21:00)
[2020-11-01] MEDS ORDERED: COLCHICINE 0.6 MG PO SCH (21:00)
[2020-11-01] MEDS ORDERED: COLCHICINE 0.6 MG (COLCRYS) TABLET PO SCH (21:00)
[2020-11-02] VITALS: BP 128/59
[2020-11-02 03:28] VITALS: BP 136/64
[2020-11-02 06:01] LABS: HEMATOCRIT 34 % (40-54); HEMOGLOBIN 11.5 g/dL (13.3-17.7); MEAN CORPUSCULAR HEMOGLOBIN 31 pg (25-34); MEAN CORPUSCULAR HGB CONC 34 g/dL (32-36); MEAN CORPUSCULAR VOLUME 91 fL (80-99); MEAN PLATELET VOLUME 10.3 fL (9.0-12.2); PLATELET COUNT 234 10^3/uL (130-400); WHITE BLOOD COUNT 6.2 10^3/uL (4.3-11.0)
[2020-11-02 06:12] LABS: CHLORIDE 104 MMOL/L (98-107); POTASSIUM 3.4 MMOL/L (3.6-5.0); SODIUM 138 MMOL/L (135-145)
[2020-11-02 06:13] LABS: CALCIUM 8.3 MG/DL (8.5-10.1)
[2020-11-02 06:14] LABS: GLUCOSE 103 MG/DL (70-105)
[2020-11-02 06:15] LABS: CARBON DIOXIDE 22 MMOL/L (21-32)
[2020-11-02 06:18] LABS: BUN/CREATININE RATIO 14; CREATININE SERUM 0.83 MG/DL (0.60-1.30); GFR ESTIMATED > 60
[2020-11-02] MEDS: RT-ALBUTEROL/IPRATROPIUM 3 ML (DUONEB) VIAL INH SCH (07:17)
[2020-11-02 07:51] VITALS: BP 159/73
[2020-11-02] MEDS: LACTATED RINGERS 1,000 ML IV SCH (08:04)
[2020-11-02] MEDS: ENOXAPARIN 40 MG/0.4 ML (LOVENOX) SYR SC SCH (08:04)
[2020-11-02] MEDS: LACTOBACILLUS ACIDOPHILUS (PROBIOTIC) CAPSULE PO SCH (08:04)
[2020-11-02 11:51] VITALS: BP 165/75
--- NOTE | 2020-11-02 12:02 | Discharge Inst-Simple/Standard ---
Discharge Inst-Standard Patient Instructions/Follow Up Plan of Care/Instructions/FU: Please continue to take your medications as written. Please follow up with your primary care doctor to follow up this hospital stay. Activity as Tolerated: Yes Discharge Diet: No Restrictions Return to The Hospital For: Chest pain, shortness of breath, fever, confusion, weaknes,s if you feel you are getting worse. CHAYA SAUNDERS MD Nov 02, 2020 12:02
[2020-11-02] MEDS ORDERED: AZIT250T12 PO (12:04)
[2020-11-02] MEDS ORDERED: CEPH500T PO (12:04)
--- NOTE | 2020-11-02 12:05 | Discharge Summary ---
Diagnosis/Chief Complaint Date of Admission October 31, 2020 at 22:05 Date of Discharge Discharge Date: Nov 02, 2020 Admission Diagnosis Sepsis Primary Care Yeni Holm,Jose Discharge Summary Discharge Physical Exam Allergies: Coded Allergies: No Known Drug Allergies (Unverified , 04/08/17) Vitals & I&Os Vital Signs Date Time Temp Pulse Resp B/P (MAP) Pulse Ox O2 Delivery O2 Flow Rate FiO2 11/02/20 11:51 37.2 88 22 165/75 (105) 92 Room Air 0.00 Hospital Course Labs (last 24 hrs) Laboratory Tests 11/02/20 05:50: White Blood Count 6.2, Red Blood Count 3.72L, Hemoglobin 11.5L, Hematocrit 34L, Mean Corpuscular Volume 91, Mean Corpuscular Hemoglobin 31, Mean Corpuscular Hemoglobin Concent 34, Red Cell Distribution Width 13.7, Platelet Count 234, Mean Platelet Volume 10.3, Sodium Level 138, Potassium Level 3.4L, Chloride Level 104, Carbon Dioxide Level 22, Anion Gap 12, Blood Urea Nitrogen 12, Creatinine 0.83, Estimat Glomerular Filtration Rate > 60, BUN/Creatinine Ratio 14, Glucose Level 103, Calcium Level 8.3L Microbiology 11/01/20 C. difficile GDH Antigen & Toxins - Final, Complete 10/31/20 Blood Culture - Preliminary, Resulted No growth Patient resulted labs reviewed. Pending Labs Laboratory Tests 11/02/20 05:50: White Blood Count 6.2, Red Blood Count 3.72, Hemoglobin 11.5, Hematocrit 34, Mean Corpuscular Volume 91, Mean Corpuscular Hemoglobin 31, Mean Corpuscular Hemoglobin Concent 34, Red Cell Distribution Width 13.7, Platelet Count 234, Mean Platelet Volume 10.3, Sodium Level 138, Potassium Level 3.4, Chloride Level 104, Carbon Dioxide Level 22, Anion Gap 12, Blood Urea Nitrogen 12, Creatinine 0.83, Estimat Glomerular Filtration Rate > 60, BUN/Creatinine Ratio 14, Glucose Level 103, Calcium Level 8.3 Imaging: Reviewed Imaging Report Discharge Home Medications: Active Scripts Active Cephalexin 500 Mg Tablet 500 Mg PO BID Azithromycin 250 Mg Tablet 250 Mg PO HS Reported Advil Pm Caplet (Ibuprofen/Diphenhydramine Cit) 1 Each Tablet 3 Each PO HS PRN Levothyroxine Sodium 300 Mcg Tablet 300 Mcg PO HS Colchicine 0.6 Mg Capsule 0.6 Mg PO HS Carvedilol 25 Mg Tablet 25 Mg PO BID Phenobarbital 64.8 Mg Tablet 194.4 Mg PO HS TAKES 3 (64.8MG) TABS Amlodipine Besylate 5 Mg Tablet 5 Mg PO HS Losartan Potassium 100 Mg Tablet 100 Mg PO HS Instructions to patient/family Please see electronic discharge instructions given to patient. CHAYA SAUNDERS MD Nov 02, 2020 12:05
== END 2020-11-02 12:58 | disposition home or self-care (01) | DRG 871 ==
LOC: EDUNIT# 20:42 → ER 20:44 → 4TH 22:05
PROVIDERS: ADMIT Internal Medicine; ATTEND Internal Medicine
DX: A41.9 Sepsis, unspecified organism (principal); J18.9 Pneumonia, unspecified organism; R09.02 Hypoxemia; G40.909 Epilepsy, unspecified, not intractable, without status epilepticus; R19.7 Diarrhea, unspecified; I10 Essential (primary) hypertension; G47.30 Sleep apnea, unspecified; E03.9 Hypothyroidism, unspecified; Z20.822 Contact with and (suspected) exposure to COVID-19; H54.3 Unqualified visual loss, both eyes; Z79.2 Long term (current) use of antibiotics
CPT/HCPCS: 36415; 71045; 71275; 80048; 80053; 81000; 83605; 84145; 85007; 85025; 85027; 87040; 87324; 87449; 87636; 94640; 94664; 94760